=== PATIENT | male | born 1955 | race Caucasian/White ===

== ENCOUNTER 2021-11-15 11:41 | Observation (INO) ==
[2021-11-15] MEDS ORDERED: Isovue-370 500 ML BOTTLE IVP ONE (12:35)
[2021-11-15] MEDS ORDERED: 0.9 % Sodium Chloride 1,000 ML IVC ONE ×2 (12:42→14:33)
[2021-11-15 12:58] LABS: Hematocrit 40.7 % (37.5-50.1); Mean Platelet Volume 12.5 fL (9.4-12.4)
[2021-11-15 13:00] LABS: Basophils % 0.2 %; Hemoglobin 13.5 g/dL (12.9-16.9); Immature Granulocytes % 0.5 % (0-4); Immature Platelets 13.7 % (1.1-6.1); Lymphocytes # 1.6 K/mcL (0.6-4.6); Lymphocytes % 24.2 %; Mean Corpuscular HGB Conc 33.2 g/dL (31.6-35.5); Mean Corpuscular Hemoglobin 28.5 pg (28.0-33.3); Mean Corpuscular Volume 85.9 fL (83.0-100.0); Monocytes # 0.4 K/mcL (0.0-1.3); Monocytes % 5.5 %; Neutrophils # 4.6 K/mcL (1.6-8.9); Red Blood Count 4.74 M/mcL (4.19-5.50); Red Cell Distribution Width 12.6 % (11.5-14.5); Segmented Neutrophils % 69.6 %; White Blood Count 6.6 K/mcL (4.3-11.1)
[2021-11-15 13:22] LABS: BUN/Creatinine Ratio 15 (6-26); Blood Urea Nitrogen 21 mg/dL (8-23); Calcium 9.2 mg/dL (8.6-10.3); Carbon Dioxide 22 mEq/L (23-29); Chloride 97 mEq/L (98-107); Glucose 111 mg/dL (70-105); Osmolality,Calculated 270 (280-300); Potassium 4.9 mEq/L (3.5-5.1); Sodium 128 mEq/L (136-145); eGFR For African Americans > 60 (> 60); eGFR For Non-African Americans 51 (> 60)
[2021-11-15 13:23] LABS: Troponin I < 0.03 ng/mL (< 0.04)
[2021-11-15 13:41] LABS: Platelet Count 97 K/mcL (140-400)
[2021-11-15] MEDS ORDERED: cefTRIAXone 2,000 MG in 0.9 % Sodium Chloride Mini Bag 100 ML IVPB ONE (14:33)
[2021-11-15] MEDS ORDERED: Azithromycin 500 MG in D5% in Water 250 ML IVPB ONE (14:33)
[2021-11-15] MEDS ORDERED: Melatonin 3 MG TABLET PO PRN (17:42)
[2021-11-15] MEDS ORDERED: Naloxone 0.4 MG/ML INJ IVP PRN (17:42)
[2021-11-15] MEDS ORDERED: Ondansetron ODT 4 MG TAB.RAPDIS SL PRN (17:42)
[2021-11-15] MEDS ORDERED: Acetaminophen 325 MG TABLET PO PRN (17:42)
[2021-11-16 06:47] LABS: Immature Granulocytes % 0.3 % (0-4); Mean Corpuscular Volume 87.3 fL (83.0-100.0); Red Cell Distribution Width 12.7 % (11.5-14.5)
[2021-11-16 06:49] LABS: Basophils % 0.3 %; Hematocrit 35.6 % (37.5-50.1); Hemoglobin 11.7 g/dL (12.9-16.9); Lymphocytes # 0.7 K/mcL (0.6-4.6); Lymphocytes % 21.8 %; Mean Corpuscular HGB Conc 32.9 g/dL (31.6-35.5); Mean Corpuscular Hemoglobin 28.7 pg (28.0-33.3); Mean Platelet Volume 11.9 fL (9.4-12.4); Monocytes # 0.3 K/mcL (0.0-1.3); Monocytes % 9.7 %; Neutrophils # 2.3 K/mcL (1.6-8.9); Red Blood Count 4.08 M/mcL (4.19-5.50); Segmented Neutrophils % 67.9 %; White Blood Count 3.4 K/mcL (4.3-11.1)
[2021-11-16 06:55] LABS: Platelet Count 74 K/mcL (140-400)
[2021-11-16 07:20] LABS: BUN/Creatinine Ratio 17 (6-26); Blood Urea Nitrogen 19 mg/dL (8-23); Calcium 8.6 mg/dL (8.6-10.3); Carbon Dioxide 22 mEq/L (23-29); Chloride 107 mEq/L (98-107); Glucose 88 mg/dL (70-105); Osmolality,Calculated 286 (280-300); Potassium 4.4 mEq/L (3.5-5.1); Sodium 137 mEq/L (136-145); eGFR For African Americans > 60 (> 60); eGFR For Non-African Americans > 60 (> 60)
[2021-11-16] MEDS: levoFLOXacin 750 MG TABLET PO SCH (08:22)
[2021-11-16 09:49] LABS: Adenovirus Not Detected (Not Detect); Bordetella Pertussis Not Detected (Not Detect); Chlamydophila pneumoniae Not Detected (Not Detect); Coronavirus 229E Not Detected (Not Detect); Coronavirus HKU1 Not Detected (Not Detect); Coronavirus NL63 Not Detected (Not Detect); Coronavirus OC43 Not Detected (Not Detect); Human Metapneumovirus DETECTED (Not Detect); Human Rhinovirus/Enterovirus Not Detected (Not Detect); Influenza A Subtype 2009 H1 Not Detected (Not Detect); Influenza B Not Detected (Not Detect); Mycoplasma pneumoniae Not Detected (Not Detect); Parainfluenza Virus 1 Not Detected (Not Detect); Parainfluenza Virus 2 Not Detected (Not Detect); Parainfluenza Virus 3 Not Detected (Not Detect); Parainfluenza Virus 4 Not Detected (Not Detect); Respiratory Syncytial Virus Not Detected (Not Detect); SARS-CoV-2 Not Detected (Not Detect)
[2021-11-16 13:01] LABS: INR 1.2; Prothrombin Time 13.1 Seconds (9.4-12.1)
[2021-11-17 07:09] VITALS: BP 144/76; PULSE 76; TEMP 98.4; O2SAT 94
[2021-11-17] MEDS: levoFLOXacin 750 MG TABLET PO SCH (07:40)
== END 2021-11-17 13:18 | disposition home or self-care (01) ==
LOC: EMEROOARM 11:41 → 2ANU 11:41
PROVIDERS: ADMIT Student in an Organized Health Care Education/Training Program; ATTEND Student in an Organized Health Care Education/Training Program